=== PATIENT | female | born 1980 | race Asian ===

== ENCOUNTER 2020-05-18 02:56 | Outpatient (CLI) | payer MEDICAID, SELFPAY ==
[2020-05-18 10:19] LABS: Calculated LDL 111 mg/dL (<100); Cholesterol 170 mg/dL (<200); HDL Cholesterol 41 mg/dL (40-60); TSH (W/Ref FT4) 2.99 uIU/mL (0.36-3.74); Triglyceride 94 mg/dL (<150)
== END 2020-05-18 02:57 | disposition home or self-care (01) ==
LOC: LBO 02:56
PROVIDERS: PCP Nurse Practitioner Family; Visit Provider Nurse Practitioner Family
DX: Z13.220 Encounter for screening for lipoid disorders (principal); Z13.29 Encounter for screening for other suspected endocrine disorder
CPT/HCPCS: 36415; 80061; 84443

== ENCOUNTER 2020-12-15 07:23 | Emergency (ER) | payer MEDICAID, SELFPAY ==
[2020-12-15 07:35] VITALS: BP 136/77; PULSE 84; TEMP 36.9; O2SAT 100
--- NOTE | 2020-12-15 08:00 | DI.CT_ITS ---
Exam(s) CT HEAD ORBITS WO EXAM: CT HEAD ORBITS WO CLINICAL HISTORY: pain, trauma. TECHNIQUE: Imaging Protocol: Axial computed tomography images with coronal and sagittal reformatted images were created and reviewed COMPARISON: No exams were available for comparison FINDINGS: BRAIN: There are no skull fractures nor fluid in the visualized paranasal sinuses. There is no evidence of intracranial hemorrhage, mass effect, or shift of midline structures. There are no extra-axial fluid collections. The ventricles are not enlarged or shifted and there is no blo od within the ventricular system nor within the basal cisterns. ORBITS CT SCAN: There is no evidence of orbital blowout fractures nor fluid in the visualized paranasal sinuses. Mil d mucosal thickening is noted in the left maxillary sinus but no fluid level therein. There is no pr ominent pre orbital swelling. No obvious findings in the globes and retro conal compartments. Extra -ocular muscles appear unremarkable. There is no evidence of fracture of the nasal bone. 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 IMPRESSION: No acute intracranial findings on this noninfused CT scan of the brain. No evidence of orbital fractures. RADIATION DOSE DELIVERED: 851.73mGy.cm Total DLP DATA REPOSITORY: All CT scans at this facility are submitted to the National Radiology Data Registry (NRDR) Dose Index Registry (DIR) with the [employer] ([employer]). RADIATION OPTIMIZATION: All CT scans at this facility use at least one of these dose optimization te chniques: automated exposure control; mA and/or kV adjustment per patient size (includes targeted exa ms where dose is matched to clinical indication); or iterative reconstruction.
[2020-12-15] MEDS: Acetaminophen 325 MG TAB (08:38)
[2020-12-15] MEDS: Fluorescein STRIPS 100/BOX 1 MG (08:38)
[2020-12-15] MEDS: Tetracaine 0.5% 4 ML BTL (08:38)
[2020-12-15] MEDS: Balanced Salt Solution 15 ML BTL (08:38)
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
== END 2020-12-15 10:55 | disposition home or self-care (01) ==
PROVIDERS: Emergency Provider Student in an Organized Health Care Education/Training Program; PCP Nurse Practitioner Family
DX: S05.8X2A Other injuries of left eye and orbit, initial encounter (principal); H20.00 Unspecified acute and subacute iridocyclitis; W22.8XXA Striking against or struck by other objects, initial encounter
CPT/HCPCS: 99284; 70450; 70480; 99283

== ENCOUNTER 2021-05-02 01:32 | Outpatient (CLI) | payer MEDICAID, SELFPAY ==
[2021-05-02 09:06] LABS: Hemoglobin A1C 9.1 % (<5.7)
[2021-05-02 09:50] LABS: ALT 25 U/L (14-59); AST 12 U/L (15-37); Albumin 3.9 g/dL (3.4-5.0); Alkaline Phosphatase 103 U/L (46-116); Anion Gap 10.4 mmol/L (3-11); BUN 12 mg/dL (7-18); Bilirubin, Total 0.3 mg/dL (0.2-1.0); CO2 25.6 mmol/L (21.0-32.0); CREATININE 0.7 mg/dL (0.55-1.02); Calcium 8.5 mg/dL (8.5-10.1); Calculated LDL 104 mg/dL (<100); Chloride 102 mmol/L (98-107); Cholesterol 183 mg/dL (<200); Glucose 185 mg/dL (74-106); HDL Cholesterol 42 mg/dL (40-60); Potassium 4.4 mmol/L (3.5-5.1); Sodium 138 mmol/L (136-145); Total Protein 7.3 g/dL (6.4-8.2); Triglyceride 186 mg/dL (<150)
== END 2021-05-02 01:33 | disposition home or self-care (01) ==
LOC: LBO 01:32
PROVIDERS: PCP Nurse Practitioner Family; Visit Provider Nurse Practitioner Family
DX: E11.9 Type 2 diabetes mellitus without complications (principal); Z13.220 Encounter for screening for lipoid disorders
CPT/HCPCS: 36415; 80053; 80061; 83036

== ENCOUNTER 2021-05-06 14:55 | Outpatient (CLI) | payer MEDICAID, SELFPAY ==
--- NOTE | 2021-05-06 14:30 | DI.RAD_ITS ---
Exam(s) XR SHOULDER RT COMPLETE 2+V EXAM: XR SHOULDER RT COMPLETE 2+V CLINICAL HISTORY: Chronic pain M25.511 PAIN RT SHOULDER. TECHNIQUE: 2D digital imaging was performed. COMPARISON: No exams were available for comparison FINDINGS: BONES: No acute fracture is present. No bony destructive lesion is seen. JOINTS: No dislocation present. SOFT TISSUE: Normal. IMPRESSION: Unremarkable radiographs of the right shoulder. DATA REPOSITORY: RADIATION DOSE DELIVERED:
== END 2021-05-06 15:15 ==
PROVIDERS: PCP Nurse Practitioner Family; Visit Provider Nurse Practitioner Family
DX: M25.511 Pain in right shoulder (principal)
CPT/HCPCS: 73030

== ENCOUNTER 2021-08-20 15:15 | Outpatient (REF) | payer MEDICAID, SELFPAY ==
[2021-08-21 15:02] LABS: COVID-19 RT-PCR UVMMC Result Negative (Negative)
== END 2021-08-20 15:16 | disposition home or self-care (01) ==
LOC: LBN 15:15
PROVIDERS: PCP Nurse Practitioner Family
DX: Z20.822 Contact with and (suspected) exposure to COVID-19 (principal); J02.9 Acute pharyngitis, unspecified; R05.8 Other specified cough
CPT/HCPCS: U0003

== ENCOUNTER 2022-05-15 20:32 | Outpatient (REF) | payer MEDICAID, SELFPAY ==
[2022-05-15 21:42] LABS: COMMENT (LAB VIEW ONLY) 66.49 mg/dL; Microalb ug/mg Crea 11.6 ug/mg Cr
== END 2022-05-15 20:33 | disposition home or self-care (01) ==
LOC: LBN 20:32
PROVIDERS: PCP Nurse Practitioner Family; Visit Provider Nurse Practitioner Family
DX: E11.9 Type 2 diabetes mellitus without complications (principal)
CPT/HCPCS: 82043; 82570

== ENCOUNTER 2022-05-30 02:30 | Outpatient (CLI) | payer MEDICAID, SELFPAY ==
[2022-05-30 11:06] LABS: HCT 36.3 % (36.0-46.0); HGB 11.1 g/dL (11.2-15.7); MCH 25.8 pg (27.0-33.0); MCHC 30.6 % (32.0-36.0); MCV 84 fL (80-95); MPV 9.8 fL (8.0-11.0); Platelet Count 353 10^3/uL (130-400); RBC 4.31 10^6/uL (3.93-5.22); RDW 16.6 % (11.7-14.6); RDW-SD 51.3 fL; WBC 6.58 10^3/uL (4.4-10.8)
[2022-05-30 11:21] LABS: Anion Gap 5.8 mmol/L (3-11); BUN 13 mg/dL (7-18); CO2 28.2 mmol/L (21.0-32.0); CREATININE 0.9 mg/dL (0.55-1.02); Calcium 8.6 mg/dL (8.5-10.1); Chloride 102 mmol/L (98-107); Estimated GFR 82.37 (mL/min/1.73m2); Glucose 114 mg/dL (74-106); Potassium 4.5 mmol/L (3.5-5.1); Sodium 136 mmol/L (136-145)
== END 2022-05-30 02:31 | disposition home or self-care (01) ==
LOC: LBO 02:30
PROVIDERS: PCP Nurse Practitioner Family; Visit Provider Nurse Practitioner Family
DX: E11.9 Type 2 diabetes mellitus without complications (principal)
CPT/HCPCS: 36415; 80048; 85027

== ENCOUNTER 2022-05-30 12:36 | Outpatient (REF) | payer MEDICAID, SELFPAY ==
--- NOTE | 2022-05-30 12:00 | PAPFT_PTH ---
PATIENT: Elsi Yadav LOC: [facility] U#:[id number] AGE/SX: 41/F ROOM: RE05/30/[address]: Nicole Alexandra CNM : 1980 BED: DIS: 05/30/2022 SPEC #: [id number] RECD: 05/30/22 13:16 STATUS: GHAZALKetan REAlok #: [id number] JOEY: 05/30/22 12:[address]: Nicole Alexandra [facility]PT[facility] Cytology RECD BY: Genie Patel ENTERED: 05/30/22 13:17 SP TYPE: PAPFT COMFORT DR: Carl Ruvalcaba, CATIE Tissues: 1 - CX/ENDOCX FOR PAP SMEARS Procedures: PAP THIN PREP/UVM Screening HPV DNA PROBE Comments: [id number]
== END 2022-05-30 12:37 | disposition home or self-care (01) ==
LOC: LBN 12:36
PROVIDERS: PCP Nurse Practitioner Family; Visit Provider Advanced Practice Midwife
DX: Z12.4 Encounter for screening for malignant neoplasm of cervix (principal); Z11.51 Encounter for screening for human papillomavirus (HPV)
CPT/HCPCS: 88142; 87624

== ENCOUNTER 2022-06-13 00:50 | Outpatient (CLI) | payer MEDICAID, SELFPAY ==
--- NOTE | 2022-06-13 07:15 | DI.MAMMO_ITS ---
Exam(s) MAMMO SCREENING EXAM: MAMMO SCREENING CLINICAL HISTORY: screening,baseline, z12.39 TECHNIQUE: Bilateral full field digital CC and MLO mammographic images were obtained with 3D tomosyn thesis and utilizing computer aided detection (CAD). COMPARISON: None. FINDINGS: Masses/Architectural Distortion: None seen. Microcalcifications: No suspicious pleomorphic-type are seen. Skin Thickening/Nipple Retraction: None. IMPRESSION: 1. No significant interval change with no specific features of malignancy noted. 2. Unless there is more urgent need, screening mammography is recommended, as per [employer] guidelines. BI-RADS Category 1 - Negative Breast Density - Category B - Scattered areas of fibroglandular density Breast density category C or D implies that the patient has dense breast tissue. Dense breast tissue is very common and is not abnormal but dense breast tissue can make it harder to find cancer on a ma mmogram. Also, dense breast tissue may increase their breast cancer risk. This information about the result of the mammogram report was provided to the patient to raise their awareness. Use this report when you speak with the patient about their risks for breast cancer, which includes their family hist ory. At that time, you may recommend for more screening tests (Ultrasound or MRI) as they might be us eful based on their risk. A negative radiographic report should not delay biopsy if a dominant or clinically suspicious mass is present. Up to ten percent of cancers are not identified on mammography. A negative report may reinforce clinical impression. Adenosis and dense breasts may obscure an underlying neoplasm. False positive reports average 6 to 10%. Patient will receive a letter notifying them of these results.
== END 2022-06-13 01:10 ==
LOC: DI 00:50
PROVIDERS: PCP Nurse Practitioner Family; Visit Provider Advanced Practice Midwife
DX: Z12.31 Encounter for screening mammogram for malignant neoplasm of breast (principal)
CPT/HCPCS: 77063; 77067